=== PATIENT | female | born 1980 | race Caucasian/White ===

== ENCOUNTER → 2022-07-18 | Outpatient (CLI) | payer OTHER ==
[~2022-07-18] MED LIST: ALLOPURINOL100 MG PO; LISINOPRIL20 MG PO; LOPRESSOR 25 MG25 MG PO; RYTHMOL SR325 MG PO
[2022-07-18 14:19] LABS: HEMOGLOBIN 11.5 gm/dl (12.3-15.3); RED BLOOD COUNT 4.47 M/UL (4.00-5.10); WHITE BLOOD COUNT 8.6 K/UL (4.5-11.0)
[2022-07-18 14:36] LABS: BUN/CREATININE RATIO 14 (0-10)
== END ==
LOC: ECHO 12:45
PROVIDERS: Internal Medicine Cardiovascular Disease
DX: R00.2 Palpitations (principal); I47.1 Supraventricular tachycardia; I10 Essential (primary) hypertension; I07.1 Rheumatic tricuspid insufficiency
CPT/HCPCS: ECHO; 36415; 71046; 80048; 85025; 93306

== ENCOUNTER 2022-07-22 09:21 | Outpatient (CLI) | payer OTHER ==
[~2022-07-22] VITALS: Ht 160 cm; Wt 108.9 kg
[2022-07-22] MEDS ORDERED: LISINOPRIL20 MG PO (10:07)
[2022-07-22] MEDS ORDERED: ALLOPURINOL100 MG PO (10:07)
[2022-07-22] MEDS ORDERED: LOPRESSOR 25 MG25 MG PO (21:55)
--- NOTE | 2022-07-23 02:03 | NUR ---
0134 PATIENT NOTED TO BE IN WHAT APPEARS TO BE SVT. RATE OF [phone] DR. JAMES CALLED, ORDER FOR ADENOSINE GIVEN. ADENOSINE OVERRIDDEN FROM [email or web address]. DR. NORWOOD CALLED TO BE PRESENT FOR ADMINISTRATION OF ADENOSINE. [employer] CONNECTED TO PATIENT TO MONITOR DURING ADMINISTRATION. 0150 ADENOSINE 6MG ADMINISTERED IVP. PATIENT CONVERTED BACK INTO NORMAL SINUS RHYTHM. ORDER FROM DR NORWOOD GIVEN TO GIVE PATIENT 50MG METOPROLOL, GET EKG, AND GO AHEAD AND GIVE HER PAIN MEDICATION DUE TO COMPLAINTS OF BACK PAIN.
[2022-07-23] MEDS ORDERED: LOPRESSOR 25 MG25 MG PO (09:22)
[2022-07-23] MEDS ORDERED: RYTHMOL SR325 MG PO (09:22)
== END 2022-07-23 13:44 | disposition home or self-care (01) ==
LOC: CATH 09:21 → PROG CARE 21:34 → CATH 21:34 → PROG CARE 21:34 → CATH 07-23 13:44
DX: I47.1 Supraventricular tachycardia (principal); I10 Essential (primary) hypertension; R94.31 Abnormal electrocardiogram [ECG] [EKG]; Z79.899 Other long term (current) drug therapy
CPT/HCPCS: 85347; 93005; 93613; 93620; 93621; 93622; 99152; 99153; C1730; C1733; C1760; C1766; C1894; C2630; J0153; J0360; J1644; J2250; J3010; J7040; Q9965